=== PATIENT | male | born 1965 | race Caucasian/White ===

== ENCOUNTER 2021-09-15 14:25 | Day surgery (SDC) | payer OTHER, SELFPAY ==
[2021-09-15] VITALS (15 sets, daily range): BP systolic 106–128; BP diastolic 65–79; PULSE 68–90; RESP 12–18; TEMP 36.6–36.8; O2SAT 95–99; BMI 23.7
--- NOTE | 2021-09-15 15:21 | PM.IMHP1 ---
Hospitalist- H&P: HPI History of Present Illness Time Seen by Provider: 15:21 Date Seen: 09/15/21 Chief complaint: APPENDICITIS Narrative: Colton Beck is a 56 year old male who presented from the [facility] today for appendicitis. He was seen in the urgent care for a 1 day history of abdominal pain (began in left upper quadrant radiated to umbilicus). White blood count in the Urgent Care was [address] scan exhibited appendicitis. Last p.o. intake approximately 10am this morning. After being diagnosed appendicitis, came to the hospital by private car for appendectomy with Dr. Gordon of general surgery. Colton is generally healthy, no history of CAD or lung disease. He has low BP at baseline (typical outpatient BP is 100s/60s). He has sesasonal allergies, treats with Flonase. He also has a shoulder injury for which he takes prn Meloxicam and Baclofen. His last Meloxicam dose was 6 days ago. He is on no ibuprofen or aspirin. He had a tonsillectomy at age 12 without surgical or anesthetic complications. No family history of severe anesthetic reactions. Never smoker. Social ETOH use (not daily, no history of withdrawals). 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 Review of Systems Status of ROS: Reports: 10 or more systems reviewed and unremarkable except as noted in History and below [facility] Medical History (Updated 09/15/21 @ 16:15 by Ban Laurent MD) Appendicitis, acute Surgical History (Updated 09/15/21 @ 15:14 by Sarah Franklin RN) Hx of tonsillectomy Social History Highest level of school completed/degree received: Bachelor's degree Smoking Status: Never smoker How often do you have a drink containing alcohol: 2-3 times a week Alcohol type: beer How often do you have six or more drinks on one occasion: Never AUDIT-C Alcohol total score: 3 Non-prescribed substance use: denies use Caffeine: Yes (4 cups of coffee day) service: No Meds Home Medications and Allergies Allergies Allergy/AdvReac Type Severity Reaction Status Date / Time Penicillins Allergy Mild Rash Verified 09/15/21 15:01 Bee and Wasp Venom AdvReac Severe Anaphylaxis Uncoded 09/15/21 15:01 Exam Narrative: Exam Narrative: GEN: Alert and oriented, answering questions appropriately HEENT: Normal external ears, EOMIs bilaterally, no scleral icterus CV: RRR, No concerning murmurs, rubs, or gallops R: LCTA bilaterally without concerning wheezing, rales, or rhonchi Ext: wwp, no concerning edema Skin: No concerning skin lesions or rashes on exposed skin Neuro: Nonfocal Psych: Appropriate Const: Vital Signs, click to edit/add: Vital Signs - 24 hr 09/15/21 14:48 09/15/21 15:02 Temperature 98.2 F Pulse Rate [Pulse Oximeter] 68 Respiratory Rate 12 12 Blood Pressure [Le ft Arm] 106/68 Pulse Oximetry 99 99 Assessment and Plan Assessment and plan (1) Appendicitis, acute: Status: Acute Plan Appendectomy with Dr. Gordon of general surgery this evening, anticipate routine postoperative cares and discharge home this evening postoperatively. Patient is low risk for anesthetic or surgical complications; medically optimized for procedure.
[2021-09-15 16:05] LABS: SARS PCR* Negative SARS-CoV-2 (Negative)
[2021-09-15] MEDS: 0.9 % SODIUM CHLORIDE 1000 ml 1,000 ML 125 ML IV (16:47)
--- NOTE | 2021-09-15 17:34 | PM.GSCN ---
History of Present Illness Consult details Consult date: 09/15/21 Narrative: Patient presented to clinic for persistent abdominal pain. Initially he felt like the pain was diffuse, more in the left upper quadrant. The pain started 2 days earlier and was nothing like he experienced before. He denies any fevers or chills. Does report some nausea and decreased appetite, no emesis. He was seen in the primary care clinic and during that evaluation his pain was more focused in the right lower quadrant. A workup was obtained with CT scan confirming the evidence of acute, uncomplicated appendicitis. Review of Systems Status of ROS: Reports: 6 or more systems reviewed and unremarkable except as noted in History and below [facility] Medical History Appendicitis, acute Surgical History Hx of tonsillectomy Social History Highest level of school completed/degree received: Bachelor's degree Smoking Status: Never smoker How often do you have a drink containing alcohol: 2-3 times a week Alcohol type: beer How often do you have six or more drinks on one occasion: Never AUDIT-C Alcohol total score: 3 Non-prescribed substance use: denies use Caffeine: Yes (4 cups of coffee day) service: No Meds Home Medications and Allergies Allergies Allergy/AdvReac Type Severity Reaction Status Date / Time Penicillins Allergy Mild Rash Verified 09/15/21 15:01 Bee and Wasp Venom AdvReac Severe Anaphylaxis Uncoded 09/15/21 15:01 Exam Narrative: Exam Narrative: General: Alert and oriented, no acute distress. Sitting comfortably in bed. Respiratory: Equal breath rise bilaterally, maintained on room air CV: Regular rhythm and rate, well perfused Abdomen: Soft, nondistended, tender to palpation right lower quadrant with some guarding and rebound. Const: Vital Signs, click to edit/add: Vital Signs - 24 hr 09/15/21 14:48 09/15/21 15:02 Temperature 98.2 F Pulse Rate [Pulse Oximeter] 68 Respiratory Rate 12 12 Blood Pressure [Le ft Arm] 106/68 Pulse Oximetry 99 99 Results Labs Labs: All other labs normal. Evidence of leukocytosis. Imaging Abdomen CT scan report/results: report reviewed and image reviewed Assessment and Plan Assessment and plan (1) Appendicitis, acute: Status: Acute Plan The patient presented with a history, exam and imaging findings consistent with acute appendicitis. I discussed the treatment options with the patient including non-surgical and surgical options. I recommended laparoscopic appendectomy. The risks of surgery were reviewed with the patient including the risks of bleeding, post-operative wound or intra-abdominal infection, injury to abdominal structures and possible conversion to an open operation. We also discussed anesthetic complications including RI, stroke, respiratory failure and blood clots. The patient voiced an understanding of our conversation, had the opportunity to ask questions, agreed to accept the risks of surgery and asked that we proceed with surgery.
[2021-09-15] MEDS: BUPIVACAINE 0.25% 30 ML INJECTION (18:19)
--- NOTE | 2021-09-15 18:28 | PM.GSPRC ---
Operative Note Date of procedure: 09/15/21 Type of Procedure: Laparoscopic appendectomy Procedure Description: After discussing the risks and benefits of the procedure, the patient signed informed consent.? The operative site was marked and the patient was brought to the operating room and placed on the operating table in supine position.? Care was taken to pad the patient's pressure points.?? The patient was then intubation by anesthesia.?? The operative site was then prepped and draped in the usual sterile fashion.? A time-out was then performed. ? Entrance to the abdomen was obtained via a 5 mm optical trocar in the left upper quadrant. The abdomen was insufflated and briefly surveyed for any signs of injury. There were none. A 12 mm port was placed at the umbilicus as well as a 5 mm port in the left lower quadrant under direct vision. The patient was then placed in Trendelenburg position with the right side up. The small bowel was gently moved out of the way and the appendix was in view. A small amount of dissection was necessary to free the appendix from the surrounding pelvic attachments. This was grasped and pulled into view. A mesenteric window was created between the base of the appendix and the mesoappendix. A 30 mm Endo-MILO purple load stapler was then used to transect the appendix at its base. A 30 mm vascular load stapler was then used to take the mesoappendix. The staple lines were inspected for bleeding. There was none. The appendix was then removed from the abdomen using an Endo-Catch bag. The specimen was sent to pathology. The 12 mm port site fascia was closed with 0 Vicryl. The skin was then closed with absorbable subcuticular suture. Sterile dressings were then applied. Instrument sponge and needle counts were correct at the end of the case. The patient was then woken and transported to the PACU in stable condition. Sterile dressings were then applied. ? The patient was then woken and transported to the recovery area in stable condition. ? The patient tolerated the procedure well. Findings: Acute, non perforated appendicitis Anesthesia: GETA Surgeon: Prisca Gordon MD Estimated blood loss (mL): 2 Condition: stable Disposition: PACU
--- NOTE | 2021-09-15 18:35 | W.ANESCHARGE ---
Anesthesia Charges Start Date/Time Anesthesia Start Date: 09/15/21 Anesthesia Start Time: 17:30 Stop Date/Time Anesthesia Stop Date: 09/15/21 Anesthesia Stop Time: 18:35 Summary Emergency: Yes
--- NOTE | 2021-09-15 19:38 | PC.NURSE ---
End of Shift: Patient pleasant and cooperative. Patient vitally stable, lungs clear, BS WNL, IV running NS at 125. Patient reported pain at most 2/10 no pain med given before surgery. Patient left for surgery 1730. Patient arrived back to the floor at shift change, report given to next RN.
== END 2021-09-15 21:44 | disposition home or self-care (01) ==
LOC: MEDSURG 14:32 → SS 15:31 → MEDSURG 15:32
PROVIDERS: Surgery; PCP Physician Assistant; Visit Provider Family Medicine
PROC: 0DTJ4ZZ Resection of Appendix, Percutaneous Endoscopic Approach (ICD-10-PCS; CPT 44970; principal; 2021-09-15 15:45)
DX: K35.80 Unspecified acute appendicitis (principal)
CPT/HCPCS: 44970; 00840; 87635; 88304; 99140; J0330; J1100; J2405; J2543; J2704; J3010; J3490; J7030

== ENCOUNTER 2022-02-22 10:56 | Outpatient (CLI) | payer OTHER, SELFPAY ==
--- NOTE | 2022-02-22 11:15 | CRLHL7_ITS ---
For Patients: As a result of the Century Cures Act, medical imaging exams and procedure reports are released immediately into your electronic medical record. You may view this report before your referring provider. If you have questions, please contact your health care provider. INDICATION : 1.8 cm TR 4 left thyroid nodule, lower pole. TECHNIQUE : Ultrasound-guided fine needle aspiration of thyroid nodule. Comparison : Ultrasound 02/14/2022 FINDINGS : PROCEDURE: After the informed consent and time-out, multiple fine needle aspirations were obtained from the thyroid nodule. Fine needle performed. 25 gauge needles were used. Lidocaine was used for local anesthesia. The preliminary cytology was adequate for interpretation. Real-time imaging was used for guidance and needle placement. Post imaging ultrasound demonstrates no immediate complication. IMPRESSION : Successful fine needle aspiration of thyroid nodule. Dictated by Manan Thomas MD @ 02/22/2022 12:17:08 PM (Electronically Signed)
== END 2022-02-22 10:57 | disposition home or self-care (01) ==
LOC: US 10:56
PROVIDERS: PCP Family Medicine; Visit Provider Family Medicine
DX: E04.1 Nontoxic single thyroid nodule (principal)
CPT/HCPCS: 10005; 88173

== ENCOUNTER 2022-06-25 09:05 | Day surgery (SDC) | payer OTHER, SELFPAY ==
[2022-06-25] VITALS (11 sets, daily range): BP systolic 95–119; BP diastolic 63–78; PULSE 53–64; RESP 14–20; TEMP 36.1–36.8; O2SAT 97–100; BMI 25.8
[2022-06-25] MEDS: LACTATED RINGERS 1000 ML 1,000 ML 100 ML IV (09:36)
[2022-06-25] MEDS: SODIUM CHLORIDE 0.9 % (FLUSH) 10 ML SYRINGE IVF (09:36)
[2022-06-25] MEDS: CEFAZOLIN 2 GM in 0.9 % SODIUM CHLORIDE Mini-bag 100 ML IVPB (11:50)
[2022-06-25] MEDS: ROPIVACAINE 0.5% 30 ML 150 MG INJECTION (12:10)
--- NOTE | 2022-06-25 12:23 | W.ANESCHARGE ---
Anesthesia Charges Start Date/Time Anesthesia Start Date: 06/25/22 Anesthesia Start Time: 17:30 Stop Date/Time Anesthesia Stop Date: 06/25/22 Anesthesia Stop Time: 18:35
--- NOTE | 2022-06-25 13:41 | PM.ORPRC ---
Procedure Note Date of procedure: 06/25/22 Procedure: PREOPERATIVE DIAGNOSIS: 1. Right knee medial meniscus tear POSTOPERATIVE DIAGNOSIS: 1. Right knee medial meniscus tear PROCEDURE: 1. Right knee arthroscopic partial medial meniscectomy SURGEON: Ed Jordan M.D. MILLWRIGHT HELPER: Stanton De Jesus PA-C. Of note, an business banking sales assistant was critical for this case to aid in patient positioning, knee manipulation, instrument exchange, and closure. ANESTHESIA: Spinal EBL: 2ml TOURNIQUET: 25 minutes 250 torr COMPLICATIONS: None evident INDICATIONS: The patient is a pleasant 56-year-old male who has experienced right knee pain particularly with any twisting or turning. Physical exam was concerning for medial meniscus tear, this was confirmed on MRI. Additionally, attempted nonoperative management has been tried, and failed. Thus, surgery was recommended. FINDINGS: complex tearing of the posterior horn to midbody medial meniscus with a displaced flap into the medial tibial gutter. Beyond that, healthy articular cartilage medial compartment. grade 2 chondromalacia lateral femoral condyle. Grade 3 chondromalacia patella median ridge. Healthy trochlear groove cartilage. Intact lateral meniscus. ACL and PCL were intact robust. No loose bodies evident. DESCRIPTION OF PROCEDURE: After a thorough discussion of risks, benefits, and alternatives, the patient was brought to the operating room and placed upon the operating table. Induction of anesthesia was undertaken as previously noted. 2g iv Ancef was administered within 1 hr of incision preoperatively. Appropriate time-out was performed identifying proper patient, site, and procedure. The right lower extremity was prepped and draped in the appropriate sterile fashion using ChloraPrep. The limb was exsanguinated and tourniquet inflated. Anterolateral and anteromedial portals were established with an 11 blade, and a diagnostic arthroscopy was performed. This identified the findings as noted above. Following the diagnostic arthroscopy, a partial medial menisectomy was performed with the combination of basket forceps and a motorized shaver. Following this, the meniscus was re-probed and found to be stable. Approximately 20-25% of the overall meniscus required resection. At this stage, the shaver was reinserted into the suprapatellar pouch and all remaining meniscal debris was evacuated. Instruments were removed, excess fluid was drained, and closure performed with 4-0 Monocryl with Steri-Strips. Dressings were applied, the tourniquet deflated, and the patient was awoken from anesthesia and transferred to the PACU in stable condition. PLAN: 1. Weightbear as tolerated operative extremity. Crutch / walker ambulation assistance PRN. 2. Ice, acetominophen and/or ibuprofen, and Percocet for pain as needed. 3. Knee range of motion and quad sets/straight leg raise regularly 4. Follow up with PA visit in 1-2 weeks for a wound check and possibly to initiate physical therapy.
--- NOTE | 2022-06-25 13:55 | W.ANESCHARGE ---
Anesthesia Charges Start Date/Time Anesthesia Start Date: 06/25/22 Anesthesia Start Time: 11:27 Stop Date/Time Anesthesia Stop Date: 06/25/22 Anesthesia Stop Time: 12:23
== END 2022-06-25 14:00 | disposition home or self-care (01) ==
PROVIDERS: PCP Family Medicine; Visit Provider Orthopaedic Surgery Sports Medicine
PROC: (CPT 29870; principal; 2022-06-25 11:00)
DX: M23.221 Derangement of posterior horn of medial meniscus due to old tear or injury, right knee (principal)
CPT/HCPCS: 29881; 01400; J0690; J1100; J2250; J2405; J2704; J2795; J3010; J7120

== ENCOUNTER 2022-11-12 08:30 | Outpatient (RCR) | payer OTHER, SELFPAY | END 2023-01-22 14:22 | disposition home or self-care (01) | PROVIDERS: PCP Family Medicine; Visit Provider Podiatrist | DX: M72.2 Plantar fascial fibromatosis (principal); Z51.89 Encounter for other specified aftercare | CPT/HCPCS: 97110; 97140; 97161 ==

== ENCOUNTER 2023-02-12 12:28 | Outpatient (CLI) | payer OTHER, SELFPAY ==
[2023-02-12 12:48] VITALS: BP 119/73; PULSE 75; RESP 16; TEMP 36.3; O2SAT 100
[2023-02-12 14:22] VITALS: BP 118/82; PULSE 70; RESP 16; O2SAT 100
== END 2023-02-12 12:29 | disposition home or self-care (01) ==
LOC: OP CLINIC 12:28
PROVIDERS: PCP Family Medicine; Visit Provider Family Medicine
DX: M72.2 Plantar fascial fibromatosis (principal); M79.672 Pain in left foot
CPT/HCPCS: 28060; 76942

== ENCOUNTER 2023-04-29 10:45 | Outpatient (RCR) | payer OTHER, SELFPAY | END 2023-07-18 14:27 | disposition home or self-care (01) | PROVIDERS: PCP Family Medicine; Visit Provider Family Medicine | DX: M72.2 Plantar fascial fibromatosis (principal); M25.312 Other instability, left shoulder; Z51.89 Encounter for other specified aftercare | CPT/HCPCS: 97110; 97140; 97161 ==

== ENCOUNTER 2023-05-10 08:42 | Emergency (ER) | payer OTHER, SELFPAY ==
[2023-05-10 08:46] VITALS: BP 122/71; PULSE 59; RESP 16; TEMP 36.4; O2SAT 100; BMI 23.0
--- NOTE | 2023-05-10 08:58 | ED_ITS ---
HPI - General Adult General Time Seen by Provider: 08:58 Date Seen: 05/10/23 Chief complaint: Unspecified Complaint, Adult Stated complaint: Prolapsed Rectum Time Seen by Provider: 05/10/23 08:51 Source: patient and RN notes reviewed Mode of arrival: ambulatory Limitations: no limitations History of Present Illness HPI narrative: This 57-year-old male is coming in with concern of rectal prolapse. He states in December of this past year, had similar symptoms. Saturday of this week started having tissue come out, he is able to reduce it. It is uncomfortable bu t he is able to reduce it himself. He feels like he has to push the tissue back up a couple of inches. He is trying Metamucil, bowels are not constipated. We did review adequate fiber with adequate fluid intake. There needs to be adequate fluid intake and he feels like he is drinking sufficiently. He sees Dr. Alonso and left a message last night. He is trying to call in get in anywhere and they referred him to the ER. There is no reported bleeding. He has been able to have bowel movements. Related Data Home Medications Medication Instructions Recorded Confirmed baclofen PO PRN muscle spasm 06/21/22 07/03/22 epinephrine 0.3 mg/0.3 mL 0.3 mg IM ONCE PRN 06/21/22 05/10/23 injection, auto-injector meloxicam 15 mg PO DAILY 06/21/22 05/10/23 psyllium husk 0.52 gram capsule 0.52 g PO DAILY 05/10/23 05/10/23 (Daily Fiber) Previous Rx's Medication Instructions Recorded hydrocortisone acetate 25 mg 25 mg CA BID #12 ea 05/10/23 rectal suppository (Hemmorex-HC) Allergies Allergy/AdvReac Type Severity Reaction Status Date / Time bee venom protein (honey bee) Allergy Severe Anaphylaxis Verified 05/10/23 08:52 Penicillins Allergy Mild Rash Verified 05/10/23 08:52 Review of Systems Narrative: As per HPI. 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) ?D17.22 - Benign lipomatous neoplasm of skin and subcutaneous tissue of left arm (ICD-10) History of laparoscopic appendectomy (09/15/21) ?Z90.49 - Acquired absence of other specified parts of digestive tract (ICD- 10) Hx of tonsillectomy ?Z90.89 - Acquired absence of other organs (ICD-10) Social History Highest level of school completed/degree received: Bachelor's degree Smoking Status: Never smoker Do you use any of these nicotine containing products: None How often do you have a drink containing alcohol: 2-3 times a week Alcohol type: beer and wine How often do you have six or more drinks on one occasion: Never AUDIT-C Alcohol total score: 3 Non-prescribed substance use: denies use Caffeine: Yes (4 cups of coffee day) service: No Exam Const: Vital Signs, click to edit/add: Vital Signs - 24 hr 05/10/23 08:46 Temperature 97.5 F L Pulse Rate [Pulse Oximeter] 59 L Respiratory Rate 16 Blood Pressure [Ri ght Upper Arm] 122/71 Pulse Oximetry 100 Oxygen Delivery Me thod Room Air Patient is alert, interactive, no apparent distress. On inspection of his anus, has some reddish tissue along the right side of the illness, looks to be hemorrhoidal, mildly tender, no bleeding, no thrombosis noted. This does not appear to be rectal prolapse but rather a hemorrhoidal area. It appears right along the anal verge. Do not see that this is protruding out. Documenting provider has reviewed patient's vital signs: yes Course Consultations Consultation #1: Spoke with Dr. Gordon our on-call surgeon. Reviewed my a thoughts EM on my exam on this patient. This seems to be hemorrhoidal tissue and is not circumferential and would not be rectal prolapse. We did discuss the use of Anusol HC, she stated it would not hurt. They can see him since it is not true rectal prolapse. If it is rectal prolapse, would recommend pelvic floor center for physiologic testing in a colorectal consult. We will start with him seen our general surgeons, if they feel he does need further evaluation, they can have him directed further on. Have reviewed this with the patient. He is somewhat happy and relieved that I do not feel it is true rectal prolapse. Time: 09:23 Vital Signs Vital signs: Initial Vital Signs Temperature 97.5 F L 05/10/23 08:46 Temperature Source Temporal Artery Scan 05/10/23 08:46 Pulse Rate 59 L 05/10/23 08:46 Respiratory Rate 16 05/10/23 08:46 Blood Pressure 122/71 05/10/23 08:46 Blood Pressure Mean 88 05/10/23 08:46 Blood Pressure Position Sitting 05/10/23 08:46 Pulse Oximetry 100 05/10/23 08:46 Oxygen Delivery Method Room Air 05/10/23 08:46 Vital Signs Temperature 97.5 F L 05/10/23 08:46 Pulse Rate 59 L 05/10/23 08:46 Respiratory Rate 16 05/10/23 08:46 Blood Pressure 122/71 05/10/23 08:46 Pulse Oximetry 100 05/10/23 08:46 Oxygen Delivery Method Room Air 05/10/23 08:46 Temperature 97.5 F L 05/10/23 08:46 Pulse Rate 59 L 05/10/23 08:46 Respiratory Rate 16 05/10/23 08:46 Blood Pressure 122/71 05/10/23 08:46 Pulse Oximetry 100 05/10/23 08:46 Oxygen Delivery Method Room Air 05/10/23 08:46 Discharge Plan Discharge Clinical Impression: Prolapsed external hemorrhoids Patient Disposition: Home, Self-Care Condition: Stable Instructions: Hemorrhoids (ED) Additional Instructions: continue with adequate fiber in fluid intake. Use the rectal suppository is as prescribed. Appointment is being made for you to see the general surgeon. Activity Level: Activity as Tolerated Discharge Diet: High Fiber Prescriptions: New hydrocortisone acetate [Hemmorex-HC] 25 mg suppository 25 mg CA BID Qty: 12 0RF No Action epinephrine 0.3 mg/0.3 mL auto-injector 0.3 mg IM ONCE PRN Rx Instructions: as a single dose; may repeat once baclofen PO PRN (Reason: muscle spasm) meloxicam 15 mg PO DAILY psyllium husk [Daily Fiber] 0.52 gram capsule 0.52 g PO DAILY Follow Up/Referrals: Shaan Alonso MD [Primary Care Provider] - Stand Alone Forms: Retrace Info Instructions
== END 2023-05-10 09:46 | disposition home or self-care (01) ==
PROVIDERS: Emergency Provider Family Medicine; PCP Family Medicine
DX: K64.5 Perianal venous thrombosis (principal)
CPT/HCPCS: 99282; 99283; 99284